=== PATIENT | male | born 1960 | race Caucasian/White ===

== ENCOUNTER 2016-12-05 07:54 | Day surgery (SDC) | payer BC ==
[2016-12-01 13:32] VITALS: BMI 41.9
[~2016-12-05 07:54] MED LIST: LACTATED RINGERS 1,000 ML IV SCH
[2016-12-05 08:20] VITALS: RESP 18; TEMP 98.1
[2016-12-05] MEDS ORDERED: LIDOCAINE 1% 20 ML VIAL (10MG/ML) FOR IV START INTRADERMA ONE (08:20)
[2016-12-05 08:23] LABS: Glucose,Whole Blood 132 mg/dL (75-99)
[2016-12-05] MEDS ORDERED: PROPOFOL 10 MG/ML 20 ML VIAL IV ONE (08:55)
--- NOTE | 2016-12-05 09:29 | P.PCN ---
Date of Procedure: 12/05/16 Procedure(s) Performed: Procedure: Total colonoscopy. Preoperative diagnosis: Screening for neoplasia, patient has history of polyps. Postoperative diagnosis: Exam within normal limits. Preparation: HalfLytely prep. Sedation: Was provided by anesthesia. Brief clinical history: The patient is a 56-year-old male who is scheduled for this evaluation because of history of adenomatous polyp. His last colonoscopy was in June 2012. He has no abdominal complaints, bleeding or anemia. Procedure: With the patient on his left lateral decubitus position and after informed consent and adequate sedation, the perianal area was inspected and it did not show any fissures or fistulas. There were no masses felt on digital rectal examination. The Olympus CFQ 160L video colonoscope was then inserted in the rectum in the usual fashion and advanced to the cecum. The mucosa appeared healthy. No polyps or tumors were seen or any obvious diverticular disease or other pathology. I retroflexed the endoscope in the rectum before the endoscope was withdrawn. The patient tolerated the procedure well. Plan: The patient was reassured. He will follow up with you as planned and I recommended repeat exam in 5 years.
[2016-12-05 09:35] VITALS: BP 143/65; PULSE 67
== END 2016-12-05 10:13 | disposition home or self-care (01) ==
LOC: ORWHC2ENDO 07:54
DX: Z12.11 Encounter for screening for malignant neoplasm of colon (principal); Z87.19 Personal history of other diseases of the digestive system; I10 Essential (primary) hypertension; E11.9 Type 2 diabetes mellitus without complications; E78.5 Hyperlipidemia, unspecified; K21.9 Gastro-esophageal reflux disease without esophagitis; G47.33 Obstructive sleep apnea (adult) (pediatric); Z79.84 Long term (current) use of oral hypoglycemic drugs; Z79.899 Other long term (current) drug therapy
CPT/HCPCS: J2704; G0121

== ENCOUNTER → 2018-06-13 | Outpatient (CLI) | payer BC ==
--- NOTE | 2018-06-13 14:16 | US ---
EXAMINATION TYPE: US kidneys/renal and bladder DATE OF EXAM: 06/13/2018 COMPARISON: NONE CLINICAL HISTORY: 58-year-old male Abdominal Pain R10.9/N3.99 Disorder of urinary system. TECHNIQUE: Multiple sonographic images of the kidneys and bladder are obtained. FINDINGS: EXAM MEASUREMENTS: Right Kidney: 13.5 x 5.5 x 6.3 cm Left Kidney: 13.5 x 6.0 x 5.7 cm Post Void Residual Volume: 12.6 mL [employer] notes: Patient of large body habitus. Right Kidney: lobular contour, no hydronephrosis or masses seen, measures large Left Kidney: lobular contour, no hydronephrosis or masses seen, measures large Bladder: No gross abnormality of the initially partially distended bladder. Bilateral Jets seen: Neither ureteral jet is seen during the course of the exam. Normal Post Void Residual: Yes IMPRESSION: 1. The kidneys measure slightly large. This may be secondary to patient's larger body habitus but lar ge bilateral kidneys can also be seen in the setting of diabetic nephropathy, acute interstitial neph ritis, and vasculitis/autoimmune disorders. Clinically correlate. 2. No hydronephrosis. 3. Postvoid bladder volume of 13 mL falls within acceptable limits.
== END | disposition home or self-care (01) ==
LOC: RADUSWWP 12:30
PROVIDERS: ATTEND Physician Assistant Medical
DX: R10.9 Unspecified abdominal pain (principal); R82.998 Other abnormal findings in urine
CPT/HCPCS: 76770